=== PATIENT | female | born 2000 | race African-American/Black ===

== ENCOUNTER 2019-03-30 07:49 | Inpatient (IN) | payer OTHER ==
[~2019-03-30] VITALS: Ht 165.1 cm; Wt 68.9 kg
[2019-03-30] MEDS ORDERED: ALBUTEROL (07:55)
[2019-03-30] MEDS ORDERED: IPRATROPIUM BROMIDE (0.02%) 0.5MG/2.5ML NEB HHN STA (08:26)
[2019-03-30] MEDS ORDERED: ALBUTEROL (0.083%) 2.5MG/3ML NEB HHN STA (08:26)
[2019-03-30] MEDS ORDERED: PREDNISONE 20MG TABLET PO STA (08:26)
[2019-03-30 08:53] LABS: CLARITY URINE CLEAR (CLEAR); COLOR URINE YELLOW (YELLOW); KETONES URINE NEGATIVE (NEGATIVE); LEUKOCYTE ESTERASE URINE NEGATIVE (NEGATIVE); NITRITE URINE NEGATIVE (NEGATIVE); OCCULT BLOOD URINE NEGATIVE (NEGATIVE); PROTEIN URINE NEGATIVE (NEGATIVE); SPECIFIC GRAVITY URINE 1.023 (1.005-1.030)
[2019-03-30 09:08] LABS: HEMATOCRIT. 38.4 % (36.0-48.0); HEMOGLOBIN. 12.9 g/dL (12.0-16.0); MEAN CORPUSCULAR HEMOGLOBIN 27.4 pg (28.0-32.0); MEAN CORPUSCULAR VOLUME 81.4 fL (81.0-99.0); MEAN PLATELET VOLUME 8.9 fl (7.4-10.4); PLATELET 210 x1000/uL (130-400); RED BLOOD CELL COUNT 4.71 mill/uL (4.2-5.4); RED CELL DISTRIBUTION WIDTH 14.9 % (11.6-14.6)
[2019-03-30 09:16] LABS: CHLORIDE 109 mEq/L (98-107); PROTHROMBIN TIME 10.7 sec (9.6-11.0)
[2019-03-30 09:26] LABS: *COCAINE SCREEN URINE NEGATIVE (NEGATIVE); METHADONE URINE SCREEN NEGATIVE (NEGATIVE); OPIATES URINE SCREEN NEGATIVE (NEGATIVE)
[2019-03-30 09:27] LABS: *AMPHETAMINES SCREEN URINE NEGATIVE (NEGATIVE); *BARBITURATES SCREEN URINE NEGATIVE (NEGATIVE); *BENZODIAZEPINES SCREEN URINE NEGATIVE (NEGATIVE); PHENCYCLIDINE URINE SCREEN NEGATIVE (NEGATIVE)
[2019-03-30 09:29] LABS: CANNABINOID URINE SCREEN PRESUMTIVE POSITIVE (NEGATIVE)
[2019-03-30 09:45] LABS: B-HCG QUANTITATIVE 1870 mIU/mL (<3)
[2019-03-30] MEDS ORDERED: SODIUM CHLORIDE 0.9% 1,000 ML IV ONE (10:15)
[2019-03-30 11:03] LABS: PLATELET ESTIMATE NORMAL
[2019-03-30 11:13] LABS: D-DIMER 0.74 mg/L FEU (<0.50); PARTIAL THROMBOPLASTIN TIME 32.6 sec (23.4-31.0)
[2019-03-30] MEDS ORDERED: IOHEXOL-350 100 ML BOTTLE ONE (13:55)
[2019-03-30] MEDS ORDERED: CEFTRIAXONE 1 G PREMIX 50 ML IV ONE (14:15)
[2019-03-30] MEDS ORDERED: SODIUM CHLORIDE 0.9% 1000ML BAG (SEPSIS BOLUS) IV ONE (14:15)
[2019-03-30] MEDS ORDERED: AZITHROMYCIN 500 MG TABLET PO ONE (14:15)
[2019-03-30] MEDS ORDERED: ONDANSETRON HCL 4MG/2ML INJ IV ONE (15:15)
[2019-03-30] MEDS ORDERED: IPRATROPIUM BROMIDE (0.02%) 0.5MG/2.5ML NEB HHN PRN (16:30)
[2019-03-30 19:07] VITALS: BP 130/78
[2019-03-30] MEDS: ACETAMINOPHEN 325MG TABLET PO PRN (19:25)
[2019-03-30] MEDS: ONDANSETRON HCL 4MG/2ML INJ IV PRN (19:25)
[2019-03-30 20:00] VITALS: BP 129/71
[2019-03-30] MEDS: SODIUM CHLORIDE 0.9% 1,000 ML IV SCH (21:12)
[2019-03-30] MEDS: IPRATROPIUM BROMIDE (0.02%) 0.5MG/2.5ML NEB HHN SCH (22:18)
[2019-03-30 23:30] VITALS: BP 122/74
[2019-03-31] VITALS: BP 122/84
[2019-03-31] MEDS: IPRATROPIUM BROMIDE (0.02%) 0.5MG/2.5ML NEB HHN SCH ×6 (00:22→20:00)
[2019-03-31 04:00] VITALS: BP 138/79
[2019-03-31] MEDS: SODIUM CHLORIDE 0.9% 1,000 ML IV SCH ×2 (04:52→13:26)
[2019-03-31] MEDS: ACETAMINOPHEN 325MG TABLET PO PRN ×2 (05:34→13:45)
[2019-03-31] MEDS: ONDANSETRON HCL 4MG/2ML INJ IV PRN (06:47)
[2019-03-31] MEDS: BUDESONIDE 0.5MG/2ML NEB HHN SCH ×2 (07:28→20:00)
[2019-03-31] MEDS: AZITHROMYCIN 500 MG TABLET PO SCH (08:48)
[2019-03-31] MEDS: OSELTAMIVIR 75MG CAPSULE PO SCH ×2 (08:48→21:31)
[2019-03-31] MEDS: PRENATAL VIT/FE FUMARATE/FA TABLET PO SCH (08:52)
[2019-03-31 12:00] VITALS: BP 130/76
[2019-03-31] MEDS ORDERED: CEFTRIAXONE 1 G PREMIX 50 ML IV SCH (13:00)
[2019-03-31] MEDS ORDERED: GUAIFENESIN-DM 200MG-20MG/10ML UDC PO PRN (14:15)
[2019-03-31] MEDS ORDERED: THROAT LOZENGES-BENZOCAINE/MENTH/CETYLPYRD CL LOZENGES MM PRN (14:15)
[2019-03-31 16:00] VITALS: BP 122/77
[2019-03-31 20:00] VITALS: BP 130/78
[2019-03-31 20:47] LABS: CHLORIDE 107 mEq/L (98-107)
[2019-03-31 21:00] LABS: BASOPHILS % 0.5 % (0.0-2.0); EOSINOPHILS % 0.1 % (0.0-5.0); HEMOGLOBIN. 11.5 g/dL (12.0-16.0); LYMPHOCYTES % 17.3 % (20.0-50.0); MEAN CORPUSCULAR HEMOGLOBIN 26.1 pg (28.0-32.0); MEAN CORPUSCULAR VOLUME 81.6 fL (81.0-99.0); MEAN PLATELET VOLUME 9.5 fl (7.4-10.4); MONOCYTES % 7.5 % (2.0-8.0); NEUTROPHILS % 74.6 % (40.0-76.0); PLATELET 172 x1000/uL (130-400); RED BLOOD CELL COUNT 4.42 mill/uL (4.2-5.4); RED CELL DISTRIBUTION WIDTH 14.8 % (11.6-14.6)
[2019-04-01] VITALS: BP 122/84
[2019-04-01] MEDS: ACETAMINOPHEN 325MG TABLET PO PRN ×2 (00:27→14:25)
[2019-04-01] MEDS: SODIUM CHLORIDE 0.9% 1,000 ML IV SCH ×2 (00:28→11:44)
[2019-04-01] MEDS: IPRATROPIUM BROMIDE (0.02%) 0.5MG/2.5ML NEB HHN SCH ×6 (00:39→20:45)
[2019-04-01 04:00] VITALS: BP 120/72
[2019-04-01 08:00] VITALS: BP 111/72
[2019-04-01] MEDS: BUDESONIDE 0.5MG/2ML NEB HHN SCH ×2 (09:00→20:45)
[2019-04-01] MEDS: AZITHROMYCIN 500 MG TABLET PO SCH (09:21)
[2019-04-01] MEDS: PRENATAL VIT/FE FUMARATE/FA TABLET PO SCH (09:21)
[2019-04-01] MEDS: OSELTAMIVIR 75MG CAPSULE PO SCH ×2 (09:21→20:17)
[2019-04-01 12:11] VITALS: BP 118/78
[2019-04-01] MEDS: CEFTRIAXONE 1 G PREMIX 50 ML IV SCH (14:24)
[2019-04-01 16:04] VITALS: BP 114/70
[2019-04-01 18:23] LABS: CHLORIDE 110 mEq/L (98-107)
[2019-04-01 20:00] VITALS: BP 122/69
[2019-04-01 20:37] LABS: BASOPHILS % 0.9 % (0.0-2.0); HEMATOCRIT. 37.5 % (36.0-48.0); LYMPHOCYTES % 39.6 % (20.0-50.0); MEAN CORPUSCULAR HEMOGLOBIN 26.1 pg (28.0-32.0); MEAN CORPUSCULAR VOLUME 81.4 fL (81.0-99.0); MEAN PLATELET VOLUME 9.1 fl (7.4-10.4); MONOCYTES % 10.7 % (2.0-8.0); NEUTROPHILS % 45.8 % (40.0-76.0); PLATELET 165 x1000/uL (130-400); RED BLOOD CELL COUNT 4.61 mill/uL (4.2-5.4); RED CELL DISTRIBUTION WIDTH 14.6 % (11.6-14.6)
[2019-04-02] VITALS: BP 134/81
[2019-04-02] MEDS: IPRATROPIUM BROMIDE (0.02%) 0.5MG/2.5ML NEB HHN SCH ×6 (00:44→21:20)
[2019-04-02 04:00] VITALS: BP 128/84
[2019-04-02] MEDS: BUDESONIDE 0.5MG/2ML NEB HHN SCH ×2 (07:45→21:20)
[2019-04-02 08:00] VITALS: BP 122/62
[2019-04-02] MEDS: PRENATAL VIT/FE FUMARATE/FA TABLET PO SCH (08:47)
[2019-04-02] MEDS: AZITHROMYCIN 500 MG TABLET PO SCH (08:48)
[2019-04-02] MEDS: OSELTAMIVIR 75MG CAPSULE PO SCH ×2 (08:48→20:50)
[2019-04-02 12:00] VITALS: BP 115/77
[2019-04-02] MEDS: CEFTRIAXONE 1 G PREMIX 50 ML IV SCH (13:56)
[2019-04-02] MEDS: ACETAMINOPHEN 325MG TABLET PO PRN (15:42)
[2019-04-02 16:00] VITALS: BP 123/72
[2019-04-02 20:00] VITALS: BP 117/55
[2019-04-03] VITALS: BP 129/86
[2019-04-03] MEDS: IPRATROPIUM BROMIDE (0.02%) 0.5MG/2.5ML NEB HHN SCH ×4 (03:08→16:47)
[2019-04-03 04:00] VITALS: BP 125/79
[2019-04-03 08:00] VITALS: BP 124/86
[2019-04-03] MEDS: PRENATAL VIT/FE FUMARATE/FA TABLET PO SCH (08:50)
[2019-04-03] MEDS: OSELTAMIVIR 75MG CAPSULE PO SCH (08:50)
[2019-04-03] MEDS: AZITHROMYCIN 500 MG TABLET PO SCH (08:50)
[2019-04-03] MEDS: ONDANSETRON HCL 4MG/2ML INJ IV PRN (09:15)
[2019-04-03] MEDS: BUDESONIDE 0.5MG/2ML NEB HHN SCH (09:20)
[2019-04-03 12:00] VITALS: BP 114/75
[2019-04-03] MEDS ORDERED: TAM75 PO (15:37)
[2019-04-03 17:20] VITALS: BP 122/86
== END 2019-04-03 17:50 | disposition home or self-care (01) | DRG 871 ==
LOC: ER 08:14 → ENRESERV 17:01 → 8WST 17:58
PROVIDERS: ADMIT Family Medicine; ATTEND Family Medicine
DX: A41.9 Sepsis, unspecified organism (principal); J96.00 Acute respiratory failure, unspecified whether with hypoxia or hypercapnia; J10.00 Influenza due to other identified influenza virus with unspecified type of pneumonia; Z33.1 Pregnant state, incidental; F12.90 Cannabis use, unspecified, uncomplicated; E66.9 Obesity, unspecified; J45.909 Unspecified asthma, uncomplicated; Z88.0 Allergy status to penicillin; Z68.25 Body mass index [BMI] 25.0-25.9, adult
CPT/HCPCS: 36415; 71045; 71275; 76801; 80053; 80305; 81003; 83605; 84145; 84484; 84702; 85025; 85379; 87804; 93005; 93970; 94640; 99291; J0696; J2405; J7030; J7626; Q9967